=== PATIENT | female | born 1985 | race Caucasian/White ===

== ENCOUNTER 2018-05-07 04:25 | Emergency (ER) | payer BC ==
[2018-05-07] MEDS: Sodium Chloride 0.9% 1,000 ML IV ONE (04:57)
[2018-05-07] MEDS: Ondansetron 4 MG/2 ML SDV IVPUSH PRN (05:00)
[2018-05-07 05:06] LABS: CHLORIDE,CL 105 mEq/L (98-106); SODIUM,NA 142 mEq/L (136-145)
--- NOTE | 2018-05-07 05:27 | EDM.PDOC ---
ED HPI GENERAL MEDICAL PROBLEM - General Chief Complaint: General Stated Complaint: "I've been vomitting" Time Seen by Provider: 05/07/18 05:10 Source of Information: Reports: Patient History Limitations: Reports: No Limitations - History of Present Illness INITIAL COMMENTS - FREE TEXT/NARRATIVE: Developed abdominal pain about 11 pm last night that progressively became worse. Pain is mainly in the right upper quadrant. Started vomiting at 0200. and is now dry heaving with thick white phlegm and bile material. Last normal period was 2 weeks ago. No vaginal discharge or frequency of urination noted. has never had any abdominal surgery in the past. No pain in this area in the past. Ate [employer] sandwich last evening. Onset: Today Location: Reports: Abdomen Severity: Moderate Associated Symptoms: Reports: Nausea/Vomiting Right Upper Abdomen Pain Score (Numeric/FACES): 9 - Related Data Allergies Allergy/AdvReac Type Severity Reaction Status Date / Time ciprofloxacin [From Cipro] Allergy Blisters Verified 05/07/18 05:04 Home Meds: Home Meds Escitalopram Oxalate 10 mg PO DAILY 05/07/18 [History] hydrOXYzine HCl [hydrOXYzine] 25 mg PO DAILY 05/07/18 [History] traZODone HCl [Trazodone HCl] 50 mg PO DAILY 05/07/18 [History] Past Medical History - Past Surgical History Musculoskeletal Surgical History: Reports: Arthroscopic Knee (left), Other (See Below) (right foot) Social & Family History - Tobacco Use Smoking Status *Q: Current Every Day Smoker ED ROS GENERAL - Review of Systems Review Of Systems: See Below Constitutional: Denies: Fever, Chills HEENT: Reports: No Symptoms Respiratory: Reports: No Symptoms Cardiovascular: Reports: No Symptoms GI/Abdominal: Reports: Abdominal Pain, Nausea, Vomiting. Denies: Constipation, Diarrhea Musculoskeletal: Reports: No Symptoms Skin: Reports: No Symptoms Neurological: Reports: No Symptoms ED EXAM, GENERAL - Physical Exam Exam: See Below Exam Limited By: No Limitations General Appearance: Alert, WD/WN, Moderate Distress Ears: Normal External Exam, Normal Canal, Normal TMs Throat/Mouth: Normal Inspection, Normal Voice Head: Atraumatic, Normocephalic Neck: Normal Inspection, Supple, Non-Tender, Full Range of Motion Respiratory/Chest: No Respiratory Distress, Lungs Clear, Normal Breath Sounds Cardiovascular: Regular Rate, Rhythm, No Murmur GI/Abdominal: Normal Bowel Sounds, Soft, Non-Tender, No Organomegaly Extremities: Normal Inspection, Normal Range of Motion, Non-Tender, No Pedal Edema, Normal Capillary Refill Neurological: Alert, Oriented Skin Exam: Warm, Dry, Intact Course - Vital Signs Last Recorded V/S: Last Vital Signs Temp 96.9 F 05/07/18 08:51 Pulse 65 05/07/18 08:51 Resp 16 05/07/18 08:51 BP 110/46 L 05/07/18 08:51 Pulse Ox 99 05/07/18 08:51 - Orders/Labs/Meds Orders: Active Orders 24 hr Category Date Time Status Abdomen Ltd [US] Stat Exams 05/07/18 05:44 Taken Ondansetron [Zofran] Med 05/07/18 04:46 Active 4 mg IVPUSH Q6H PRN Sodium Chloride 0.9% [Normal Saline] 1,000 ml Med 05/07/18 04:45 Active IV .BOLUS Sodium Chloride 0.9% [Normal Saline] 1,000 ml Med 05/07/18 06:00 Active IV ASDIRECTED Medication Orders Sodium Chloride (Normal Saline) 1,000 mls @ 999 drops/hr IV .BOLUS ONE Stop: 05/07/18 19:45 Last Admin: 05/07/18 04:57 Dose: 999 drops/hr Sodium Chloride (Normal Saline) 1,000 mls @ 250 mls/hr IV ASDIRECTED LEIGH Last Admin: 05/07/18 06:03 Dose: 250 mls/hr Ondansetron HCl (Zofran) 4 mg IVPUSH Q6H PRN PRN Reason: Vomiting Last Admin: 05/07/18 05:00 Dose: 4 mg Labs: Laboratory Tests 05/07/18 05/07/18 05/07/18 Range/Units 04:55 04:55 04:55 WBC 13.2 H (5.0-10.0) 10^3/uL RBC 4.98 (4.00-5.50) 10^6/uL Hgb 14.1 (12.0-16.0) g/dL Hct 43.6 (37.0-47.0) % MCV 87.6 (82.0-94.0) fL MCH 28.3 (27.0-32.0) pg MCHC 32.3 L (33.0-38.0) g/dL RDW Coeff of [place] 13.8 (11.0-15.0) % Plt Count 299 (150-400) 10^3/uL Neut % (Auto) 79.7 (35-85) % Lymph % (Auto) 10.7 (10-55) % [place] % (Auto) 7.2 (0-16) % Eos % (Auto) 2.2 (0-5) % Baso % (Auto) 0.2 (0-3) % Neut # (Auto) 10.52 H (1.80-7.00) 10^3/uL Lymph # (Auto) 1.41 (1.00-4.80) 10^3/uL [place] # (Auto) 0.95 H (0.00-0.80) 10^3/uL Eos # (Auto) 0.29 (0.00-0.45) 10^3/uL Baso # (Auto) 0.02 10^3/uL Sodium 142 (136-145) mEq/L Potassium 3.6 (3.5-5.0) mEq/L Chloride 105 (98-106) mEq/L Carbon Dioxide 27 (21-32) mmol/L BUN 11 D (7-18) mg/dL Creatinine 0.9 (0.6-1.0) mg/dL Est Cr Clr Drug Dosing TNP Estimated GFR (MDRD) > 60 (>=60) mL/min Glucose 114 H (75-99) mg/dL Calcium 8.7 (8.4-10.1) mg/dL Total Bilirubin (0.0-1.0) mg/dL AST (15-37) U/L ALT (12-78) U/L Alkaline Phosphatase (46-116) U/L C-Reactive Protein 4.1 H (0.2-0.8) mg/dL Total Protein (6.4-8.2) g/dL Albumin (3.4-5.0) g/dL Amylase (25-115) U/L Urine Color Yellow (YELLOW) Urine Appearance Clear (CLEAR) Urine pH 6.0 (4.5-8.0) Ur Specific [place] >= 1.030 H (1.003-1.020) Urine Protein Trace H (NEGATIVE) mg/dL Urine Glucose (UA) Negative (NEGATIVE) mg/dL Urine Ketones Negative (NEGATIVE) mg/dL Urine Occult Blood Trace-lysed H (NEGATIVE) Urine Nitrite Negative (NEGATIVE) Urine Bilirubin Negative (NEGATIVE) Urine Urobilinogen 0.2 (0.2-1.0) EU/dL Ur Leukocyte Esterase Negative (NEGATIVE) Urine RBC Not seen (0-5) /HPF Urine WBC Not seen (0-5) /HPF Ur Squamous Epith Cells Few H (NOT SEEN) /HPF Urine Bacteria Few H (NOT SEEN) /HPF Urine Mucus Few H (NOT SEEN) /HPF 05/07/18 Range/Units 04:55 WBC (5.0-10.0) 10^3/uL RBC (4.00-5.50) 10^6/uL Hgb (12.0-16.0) g/dL Hct (37.0-47.0) % MCV (82.0-94.0) fL MCH (27.0-32.0) pg MCHC (33.0-38.0) g/dL RDW Coeff of [place] (11.0-15.0) % Plt Count (150-400) 10^3/uL Neut % (Auto) (35-85) % Lymph % (Auto) (10-55) % [place] % (Auto) (0-16) % Eos % (Auto) (0-5) % Baso % (Auto) (0-3) % Neut # (Auto) (1.80-7.00) 10^3/uL Lymph # (Auto) (1.00-4.80) 10^3/uL [place] # (Auto) (0.00-0.80) 10^3/uL Eos # (Auto) (0.00-0.45) 10^3/uL Baso # (Auto) 10^3/uL Sodium 141 (136-145) mEq/L Potassium 3.6 (3.5-5.0) mEq/L Chloride 105 (98-106) mEq/L Carbon Dioxide 24 (21-32) mmol/L BUN 11 (7-18) mg/dL Creatinine 0.9 (0.6-1.0) mg/dL Est Cr Clr Drug Dosing TNP Estimated GFR (MDRD) > 60 (>=60) mL/min Glucose 113 H (75-99) mg/dL Calcium 8.6 (8.4-10.1) mg/dL Total Bilirubin 0.2 (0.0-1.0) mg/dL AST 16 (15-37) U/L ALT 21 (12-78) U/L Alkaline Phosphatase 61 (46-116) U/L C-Reactive Protein (0.2-0.8) mg/dL Total Protein 7.4 (6.4-8.2) g/dL Albumin 3.1 L (3.4-5.0) g/dL Amylase 63 (25-115) U/L Urine Color (YELLOW) Urine Appearance (CLEAR) Urine pH (4.5-8.0) Ur Specific [place] (1.003-1.020) Urine Protein (NEGATIVE) mg/dL Urine Glucose (UA) (NEGATIVE) mg/dL Urine Ketones (NEGATIVE) mg/dL Urine Occult Blood (NEGATIVE) Urine Nitrite (NEGATIVE) Urine Bilirubin (NEGATIVE) Urine Urobilinogen (0.2-1.0) EU/dL Ur Leukocyte Esterase (NEGATIVE) Urine RBC (0-5) /HPF Urine WBC (0-5) /HPF Ur Squamous Epith Cells (NOT SEEN) /HPF Urine Bacteria (NOT SEEN) /HPF Urine Mucus (NOT SEEN) /HPF Meds: Medications Generic Name Dose Route Start Last Admin Trade Name Freq PRN Reason Stop Dose Admin Sodium Chloride 1,000 mls @ 999 drops/hr 05/07/18 04:45 05/07/18 04:57 Normal Saline IV 05/07/18 19:45 999 drops/hr .BOLUS ONE Administration Sodium Chloride 1,000 mls @ 250 mls/hr 05/07/18 06:00 05/07/18 06:03 Normal Saline IV 250 mls/hr ASDIRECTED LEIGH Administration Ondansetron HCl 4 mg 05/07/18 04:46 05/07/18 05:00 Zofran IVPUSH 4 mg Q6H PRN Administration Vomiting Discontinued Medications Generic Name Dose Route Start Last Admin Trade Name Freq PRN Reason Stop Dose Admin Fentanyl 50 mcg 05/07/18 05:46 05/07/18 06:00 Sublimaze IVPUSH 05/07/18 05:47 50 mcg ONETIME ONE Administration Promethazine HCl 25 mg/ Sodium 51 mls @ 100 mls/hr 05/07/18 05:49 07/13/18 06 :04 Chloride IV 05/07/18 06:19 100 mls/hr NOW STA Administration - Re-Assessments/Exams Free Text/Narrative Re-Assessment/Exam: 05/07/18 05:45 Will continue IV fluids and keep obs for the next 1-2 hours to rehydrate. 05/07/18 09:26 Discussed that she has gallstones. Will set up appt with Dr. Bonilla for Gall bladder consult Departure - Departure Time of Disposition: 09:28 Disposition: Home, Self-Care 01 Condition: Good Clinical Impression: Cholecystitis with cholelithiasis Qualifiers: Cholelithiasis location: gallbladder Cholecystitis acuity: acute Biliary obstruction: without biliary obstruction Qualified Code(s): K80.00 - Calculus of gallbladder with acute cholecystitis without obstruction - Discharge Information Instructions: Cholelithiasis Forms: ED Department Discharge Additional Instructions: Appt with Dr. Bonilla May 11 at 2:45 for consult for gallbladder. Avoid fatty foods as much as possible push fluids as much as possible Phenergan 25 mg every 8 hours as needed for nausea Tramadol 50 mg every 8 hours as needed for pain - Problem List & Annotations (1) Cholecystitis with cholelithiasis SNOMED Code(s): 917191386, 547963959 Code(s): K80.10 - CALCULUS OF GALLBLADDER W CHRONIC CHOLECYST W/O OBSTRUCTION Status: Acute Priority: High Current Visit: Yes Qualifiers: Cholelithiasis location: gallbladder Cholecystitis acuity: acute Biliary obstruction: without biliary obstruction Qualified Code(s): K80.00 - Calculus of gallbladder with acute cholecystitis without obstruction - Problem List Review Problem List Initiated/Reviewed/Updated: Yes - My Orders Last 24 Hours: My Active Orders 05/07/18 04:45 Sodium Chloride 0.9% [Normal Saline] 1,000 ml IV .BOLUS 05/07/18 04:46 Ondansetron [Zofran] 4 mg IVPUSH Q6H PRN 05/07/18 05:44 Abdomen Ltd [US] Stat 05/07/18 06:00 Sodium Chloride 0.9% [Normal Saline] 1,000 ml IV ASDIRECTED - Assessment/Plan Last 24 Hours: My Active Orders 05/07/18 04:45 Sodium Chloride 0.9% [Normal Saline] 1,000 ml IV .BOLUS 05/07/18 04:46 Ondansetron [Zofran] 4 mg IVPUSH Q6H PRN 05/07/18 05:44 Abdomen Ltd [US] Stat 05/07/18 06:00 Sodium Chloride 0.9% [Normal Saline] 1,000 ml IV ASDIRECTED
[2018-05-07 05:43] LABS: CHLORIDE,CL 105 mEq/L (98-106); SODIUM,NA 141 mEq/L (136-145)
[2018-05-07] MEDS: fentaNYL 100 MCG/2 ML SDV IVPUSH ONE (06:00)
[2018-05-07] MEDS: Sodium Chloride 0.9% 1,000 ML IV SCH (06:03)
[2018-05-07] MEDS: Promethazine 25 MG in Sodium Chloride 0.9% 50 ML IV STA (06:04)
== END 2018-05-07 09:51 | disposition home or self-care (01) ==
LOC: CC.ED 04:25
DX: K80.00 Calculus of gallbladder with acute cholecystitis without obstruction (principal); F17.210 Nicotine dependence, cigarettes, uncomplicated; Z88.1 Allergy status to other antibiotic agents
CPT/HCPCS: 36415; 76705; 80048; 80053; 81001; 82150; 85025; 86140; 96361; 96365; 96375; 99284; J2405; J2550; J3010; J7030; J7050

== ENCOUNTER 2020-02-22 14:40 | Emergency (ER) | payer BC ==
[2020-02-22] MEDS ORDERED: Pantoprazole 40 MG Tab.CR PO ONE (14:41)
[2020-02-22] MEDS ORDERED: Ondansetron 4 MG Tab.DIS PO ONE (14:51)
[2020-02-22] MEDS ORDERED: Alum Hydrox/Mag Hydrox/Simeth 30 ML, Lidocaine 2% 15 ML PO ONE ×2 (14:51)
[2020-02-22 15:15] LABS: CHLORIDE,CL 104 mEq/L (98-106); SODIUM,NA 139 mEq/L (136-145)
[2020-02-22] MEDS ORDERED: Acetaminophen 325 MG Tab PO ONE (15:23)
[2020-02-22] MEDS ORDERED: Sucralfate 1 GM Tab PO ONE (15:24)
[2020-02-22] MEDS ORDERED: Take Home: Pantoprazole 40 MG Tab.CR, 1 Tab Pack PO ONE (15:24)
--- NOTE | 2020-02-22 15:25 | EDM.PDOC ---
ED HPI GENERAL MEDICAL PROBLEM - General Chief Complaint: Abdominal Pain Stated Complaint: SEVERE ABD PAIN/NAUSEA Time Seen by Provider: 02/22/20 15:00 Source of Information: Reports: Patient History Limitations: Reports: No Limitations - History of Present Illness INITIAL COMMENTS - FREE TEXT/NARRATIVE: Devika is a 34 yo female who presents to the ED with complaints of abdominal pain. Pain started around 9:30 this morning and has progressively worsened thru out the day. She states she hasn't ate anything today and has only drank tea today. Admits to normal bowel movements. States she has had two today. Denies any bloody stools. States the pain has made her nauseated and vomited a few times today. States the pain reminds her of when she had gallstones and ended up getting her gallbladder out. Denies any symptoms since. Does have history of GERD and has been taking omeprazole for the last few months. Denies any alcohol use. States she does smoke about 1 ppd. No hematemesis. Denies any chance of . Middle Epigastric Pain Score (Numeric/FACES): 6 - Related Data Allergies Allergy/AdvReac Type Severity Reaction Status Date / Time ciprofloxacin [From Cipro] Allergy Blisters Verified 02/22/20 14:44 Home Meds: Home Meds . [No Known Home Meds] 02/22/20 [History] Past Medical History Psychiatric History: Reports: Depression, Panic Attack - Past Surgical History GI Surgical History: Reports: Cholecystectomy Musculoskeletal Surgical History: Reports: Arthroscopic Knee, Other (See Below) Social & Family History - Tobacco Use Smoking Status *Q: Current Every Day Smoker Years of Tobacco use: 15 Packs/Tins Daily: 1 ED ROS GENERAL - Review of Systems Review Of Systems: See Below Constitutional: Reports: Fatigue, Decreased Appetite. Denies: Fever, Chills HEENT: Reports: No Symptoms Respiratory: Reports: No Symptoms Cardiovascular: Reports: No Symptoms GI/Abdominal: Reports: Abdominal Pain, Decreased Appetite, Nausea, Vomiting. Denies: Bloody Stool, Constipation, Diarrhea, Distension, Hematemesis, Hematochezia : Reports: No Symptoms Musculoskeletal: Reports: No Symptoms. Denies: Back Pain Skin: Reports: No Symptoms Neurological: Reports: No Symptoms ED EXAM, GI/ABD - Physical Exam Exam: See Below Exam Limited By: No Limitations General Appearance: Alert, Mild Distress Ears: Normal External Exam, Normal Canal, Hearing Grossly Normal, Normal TMs Nose: Normal Inspection, Normal Mucosa, No Blood Throat/Mouth: Normal Inspection, Normal Lips, Normal Teeth, Normal Gums, Normal Oropharynx, Normal Voice, No Airway Compromise Head: Atraumatic, Normocephalic Neck: Normal Inspection, Supple, Non-Tender, Full Range of Motion Respiratory/Chest: No Respiratory Distress, Lungs Clear, Normal Breath Sounds, No Accessory Muscle Use, Chest Non-Tender Cardiovascular: Regular Rate, Rhythm, No Edema, No Murmur GI/Abdominal Exam: Normal Bowel Sounds, Soft, No Organomegaly, No Distention, No Mass, Tender (epigastrc and left/mid upper quadrant) Back Exam: Normal Inspection. No: CVA Tenderness (L), CVA Tenderness (R) Extremities: Normal Inspection, No Pedal Edema Neurological: Alert, Oriented, Normal Cognition Psychiatric: Normal Affect, Normal Mood Skin Exam: Warm, Dry, Intact, Normal Color, No Rash Course - Vital Signs Last Recorded V/S: Last Vital Signs Temp 97.2 F 02/22/20 14:50 Pulse 82 02/22/20 14:50 Resp 18 02/22/20 14:50 BP 122/82 02/22/20 14:50 Pulse Ox - Orders/Labs/Meds Orders: Active Orders 24 hr Category Date Time Status HCG QUALITATIVE,SERUM [CHEM] Stat Lab 02/22/20 15:00 Received UA RFX DORA AND CULT IF INDIC [URIN] Stat Lab 02/22/20 14:50 Ordered Labs: Laboratory Tests 02/22/20 02/22/20 Range/Units 15:00 15:00 WBC 12.2 H (5.0-10.0) 10^3/uL RBC 5.02 (4.00-5.50) 10^6/uL Hgb 14.6 (12.0-16.0) g/dL Hct 44.4 (37.0-47.0) % MCV 88.4 (82.0-94.0) fL MCH 29.1 (27.0-32.0) pg MCHC 32.9 L (33.0-38.0) g/dL RDW Coeff of [place] 13.9 (11.0-15.0) % Plt Count 274 (150-400) 10^3/uL Neut % (Auto) 77.4 (35-85) % Lymph % (Auto) 14.0 (10-55) % [place] % (Auto) 4.9 (0-16) % Eos % (Auto) 3.4 (0-5) % Baso % (Auto) 0.3 (0-3) % Neut # (Auto) 9.44 H (1.80-7.00) 10^3/uL Lymph # (Auto) 1.71 (1.00-4.80) 10^3/uL [place] # (Auto) 0.60 (0.00-0.80) 10^3/uL Eos # (Auto) 0.41 (0.00-0.45) 10^3/uL Baso # (Auto) 0.04 10^3/uL Sodium 139 (136-145) mEq/L Potassium 3.8 (3.5-5.0) mEq/L Chloride 104 (98-106) mEq/L Carbon Dioxide 26 (21-32) mmol/L BUN 11 D (7-18) mg/dL Creatinine 0.9 (0.6-1.0) mg/dL Est Cr Clr Drug Dosing TNP Estimated GFR (MDRD) > 60 (>=60) mL/min Glucose 92 (75-99) mg/dL Calcium 9.0 (8.4-10.1) mg/dL Total Bilirubin 0.3 (0.0-1.0) mg/dL AST 15 (15-37) U/L ALT 20 (12-78) U/L Alkaline Phosphatase 62 (46-116) U/L C-Reactive Protein 1.0 H (0.2-0.8) mg/dL Total Protein 7.8 (6.4-8.2) g/dL Albumin 3.7 (3.4-5.0) g/dL Amylase 48 (25-115) U/L Lipase 127 (73-393) U/L Meds: Medications Discontinued Medications Generic Name Dose Route Start Last Admin Trade Name Freq PRN Reason Stop Dose Admin Al Hydroxide/Mg Hydroxide 30 0 ml 02/22/20 14:51 02/22/20 14:59 ml/ Lidocaine HCl 15 ml PO 02/22/20 14:52 30 ml ONETIME ONE Administration Ondansetron HCl 4 mg 02/22/20 14:51 Zofran Odt PO 02/22/20 14:52 ONETIME ONE Departure - Departure Time of Disposition: 15:29 Disposition: Home, Self-Care 01 Clinical Impression: Peptic ulcer - Discharge Information Instructions: Peptic Ulcer, [id number], Nausea and Vomiting, Adult, Easy-to- Read Referrals: Inna Guallpa PA-C [Primary Care Provider] - Additional Instructions: 1) Zofran 4mg ODT - 1 tablet every 4 hours as needed for nausea 2) Carafate 1gm - 1 tablet 4 times a day 3) Continue with omeprazole twice a day for 2 weeks 4) May take Tylenol for discomfort, refrain from any NSAIDs (ibuprofen, aleve, motrin, naproxen, aspirin, etc... ). 5) spicy foods, chocolate, caffeine, stress, smoking will irritate ulcer 6) Follow up in clinic on Thursday for recheck, advise returning sooner if symptoms worsen. Sepsis Event Note - Evaluation Sepsis Screening Result: No Definite Risk - Focused Exam Vital Signs: Vital Signs Temp Pulse Resp BP 02/22/20 14:50 97.2 F 82 18 122/82 Date Exam was Performed: 02/22/20 Time Exam was Performed: 15:19 - Problem List & Annotations (1) Peptic ulcer SNOMED Code(s): 50448363 Code(s): K27.9 - PEPTIC ULC, SITE UNSP, UNSP AC OR CHR, W/O HEMOR OR PERF Status: Acute Current Visit: Yes - My Orders Last 24 Hours: My Active Orders 02/22/20 14:50 UA RFX DORA AND CULT IF INDIC [URIN] Stat 02/22/20 15:00 HCG QUALITATIVE,SERUM [CHEM] Stat - Assessment/Plan Last 24 Hours: My Active Orders 02/22/20 14:50 UA RFX DORA AND CULT IF INDIC [URIN] Stat 02/22/20 15:00 HCG QUALITATIVE,SERUM [CHEM] Stat Plan: Patient initially given GI cocktail upon my arrival to ED. Pain initially was 7 out of 10 and after consuming the GI cocktail pain did subside to 1 out of 10. We will discharge at this time. Long discussion of peptic ulcer disease and treatment approach. Advise recheck in clinic on Thursday. May return to ED if symptoms worsen. Labs overall are stable. LFT's and pancreas labs unremarkable.
== END 2020-02-22 15:43 | disposition home or self-care (01) ==
LOC: CC.ED 14:40
DX: K27.9 Peptic ulcer, site unspecified, unspecified as acute or chronic, without hemorrhage or perforation (principal); Z88.1 Allergy status to other antibiotic agents; F17.210 Nicotine dependence, cigarettes, uncomplicated
CPT/HCPCS: 36415; 80053; 82150; 83690; 84703; 85025; 86140; 99284; A9270-GY

== ENCOUNTER 2020-12-15 08:35 | Emergency (ER) | payer BC ==
--- NOTE | 2020-12-15 09:27 | EDM.PDOC ---
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 She is approximately 8 1/2 weeks , was confirmed by ultrasound on November 26 as she was unsure of dates. Today, went to work and with voiding, noted a fair amount of blood on the tissue. Did not have any cramping so continued to work. Approximately 30 minutes later, did start cramping and passed more blood. Does still have mild cramping. Is a 1. Has been seeing Dr. Bridges in [place] for her OB visits. 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 Psychiatric History: Reports: Depression, Panic Attack - Past Surgical History GI Surgical History: Reports: Cholecystectomy Musculoskeletal Surgical History: Reports: Arthroscopic Knee, Other (See Below) Other Musculoskeletal Surgeries/Procedures:: Right foot surgery. L knee lateral release and tibial tubercle transfer Social & Family History - Family History Family Medical History: No Pertinent Family History - Tobacco Use Tobacco Use Status *Q: Current Every Day Tobacco User Years of Tobacco use: 10 Packs/Tins Daily: 1 - Caffeine Use Caffeine Use: Reports: None - Recreational Drug Use Recreational Drug Use: No ED ROS GENERAL - Review of Systems Review Of Systems: See Below Constitutional: Denies: Fever, Chills, Malaise, Weakness, Fatigue, Decreased Appetite HEENT: Reports: No Symptoms Respiratory: Denies: Shortness of Breath, Cough Cardiovascular: Denies: Chest Pain, Edema, Lightheadedness Endocrine: Denies: Fatigue GI/Abdominal: Denies: Abdominal Pain, Nausea, Vomiting : Reports: Other (bleeding in first trimester) Musculoskeletal: Reports: No Symptoms Skin: Reports: No Symptoms Neurological: Reports: No Symptoms ED EXAM - Physical Exam Exam: See Below Exam Limited By: No Limitations General Appearance: Alert, WD/WN, No Apparent Distress Ears: Normal External Exam, Normal TMs Nose: Normal Inspection, Normal Mucosa, No Blood Throat/Mouth: Normal Inspection, Normal Oropharynx Head: Normocephalic Neck: Normal Inspection, Supple, Non-Tender Respiratory/Chest: No Respiratory Distress, Lungs Clear, Normal Breath Sounds Cardiovascular: Regular Rate, Rhythm GI/Abdominal Exam: Normal Bowel Sounds, Soft, Non-Tender (Female) Exam: Other (unable to obtain FHTs, early in ). No: Vaginal Bleeding (no active bleeding at present) Extremities: Normal Inspection, No Pedal Edema Neurological: Alert, Oriented Skin Exam: Warm, Dry Course - Vital Signs Last Recorded V/S: Last Vital Signs Temp 96.8 F L 12/15/20 08:44 Pulse 91 12/15/20 08:44 Resp 18 12/15/20 08:44 BP 137/81 12/15/20 08:44 Pulse Ox 99 12/15/20 08:44 - Orders/Labs/Meds Orders: Active Orders 24 hr Category Date Time Status Serum Beta-HCG [BHCG QUANTITATIVE] [REF] Stat Lab 12/15/20 09:41 Received - Re-Assessments/Exams Free Text/Narrative Re-Assessment/Exam: 12/15/20 quantitative HCG drawn, will await results. Will likely need to repeat these labs next week. Discussed pelvic ultrasound. We do not have audiometric technician available today. Patient very apprehensive and does not want to wait until Thursday to have evaluated. Is aware that could not change the course of a spontaneous at this point. Contacted [facility], no tech available. contacted [facility]. Able to do ultrasound today. Will have patient go per private vehicle for testing. Will notify her once a full report is received. Advised pelvic rest/no intercourse. Rest. Push fluids. Departure - Departure Time of Disposition: 09:25 Disposition: Home, Self-Care 01 Condition: Fair Clinical Impression: Threatened - Discharge Information *PRESCRIPTION DRUG MONITORING PROGRAM REVIEWED*: No *COPY OF PRESCRIPTION DRUG MONITORING REPORT IN PATIENT MICHELE: No Instructions: Threatened Miscarriage Referrals: Patricia Pitts PA [Primary Care Provider] - Forms: ED Department Discharge Additional Instructions: 1. Rest 2. Push fluids 3. No intercourse 4. Report to [facility] for ultrasound this am 5. We will call you once a report is received from that ultrasound and further plan Sepsis Event Note (ED) - Evaluation Sepsis Screening Result: No Definite Risk - Focused Exam Vital Signs: Vital Signs Temp Pulse Resp BP Pulse Ox 12/15/20 08:44 96.8 F L 91 18 137/81 99 - My Orders Last 24 Hours: My Active Orders 12/15/20 09:41 Serum Beta-HCG [BHCG QUANTITATIVE] [REF] Stat - Assessment/Plan Last 24 Hours: My Active Orders 12/15/20 09:41 Serum Beta-HCG [BHCG QUANTITATIVE] [REF] Stat
== END 2020-12-15 09:28 | disposition home or self-care (01) ==
LOC: CC.ED 08:35
DX: O20.0 Threatened abortion (principal); Z88.1 Allergy status to other antibiotic agents; Z72.0 Tobacco use; Z3A.08 8 weeks gestation of pregnancy
CPT/HCPCS: 36415; 84702; 99284

== ENCOUNTER 2021-10-28 10:10 | Emergency (ER) | payer SELFPAY ==
[2021-10-28] MEDS ORDERED: Ketorolac 60 MG/2 ML SDV IM ONE (10:29)
[2021-10-28] MEDS ORDERED: Iopamidol 755 Mg/ML 100 ML Bottle IVPUSH ONE (11:35)
--- NOTE | 2021-10-28 13:07 | EDM.PDOC ---
ED HPI GENERAL MEDICAL PROBLEM - General Chief Complaint: General Stated Complaint: LT SIDED JIMENEZ Time Seen by Provider: 10/28/21 10:30 Source of Information: Reports: Patient History Limitations: Reports: No Limitations - History of Present Illness INITIAL COMMENTS - FREE TEXT/NARRATIVE: Pleasant 36 year old female presents with severe left sided eye pain and headache. She has her eyes covered as she is so sensitive to light and has extreme pain with any ocular movements and will barely even open her eyes. She states she had a sinus infection two weeks ago; was never on any antibiotics. No history of migraines. No fever, chills or other symptoms. No nasal discharge or ear pain. She states it came on suddenly this am. She did not try anything to help alleviate pain prior to arrival at ER. Onset: Sudden Onset Date: 10/28/21 Duration: Hour(s): (patient states started this am; did not try any home remedies prior to arrival.) Location: Reports: Face Quality: Reports: Pressure, Stabbing, Throbbing Severity: Severe Improves with: Reports: None Worsens with: Reports: Movement Associated Symptoms: Reports: No Other Symptoms Treatments ACADEMIC COORDINATOR: Reports: Other (see below) (no treatments prior to arrival) Headache Pain Score (Numeric/FACES): 7 - Related Data Allergies Allergy/AdvReac Type Severity Reaction Status Date / Time ciprofloxacin [From Cipro] Allergy Blisters Verified 10/28/21 10:46 Home Meds: Home Meds Amoxicillin/Potassium Clav [Augmentin 875-125 Tablet] 1 each PO BID 10 Days #20 tab 10/28/21 [Rx] Diclofenac Sodium 75 mg PO BID PRN 10 Days #20 tablet. 10/28/21 [Rx] Omeprazole 20 mg PO DAILY 10/28/21 [History] Past Medical History Gastrointestinal History: Reports: None, GERD COMMISSION [employer]ER History: Reports: Other (See Below) Other COMMISSION BR[employer]ER History: 8.5 weeks with vaginal bleeding. Psychiatric History: Reports: Depression, Panic Attack - Past Surgical History GI Surgical History: Reports: Cholecystectomy Musculoskeletal Surgical History: Reports: Arthroscopic Knee, Other (See Below) Other Musculoskeletal Surgeries/Procedures:: Right foot surgery. L knee lateral release and tibial tubercle transfer Social & Family History - Family History Family Medical History: No Pertinent Family History - Tobacco Use Tobacco Use Status *Q: Current Every Day Tobacco User Years of Tobacco use: 10 Packs/Tins Daily: 0.5 - Caffeine Use Caffeine Use: Reports: Coffee, Energy Drinks, Soda - Alcohol Use Days Per Week of Alcohol Use: 3 Number of Drinks Per Day: 5 Total Drinks Per Week: 15 - Recreational Drug Use Recreational Drug Use: No ED ROS GENERAL - Review of Systems Review Of Systems: See Below Constitutional: Reports: No Symptoms HEENT: Reports: Eye Discharge, Eye Pain Respiratory: Reports: No Symptoms Cardiovascular: Reports: No Symptoms Endocrine: Reports: No Symptoms GI/Abdominal: Reports: No Symptoms : Reports: No Symptoms Musculoskeletal: Reports: No Symptoms Skin: Reports: No Symptoms Neurological: Reports: Paresthesia Psychiatric: Reports: No Symptoms Hematologic/Lymphatic: Reports: No Symptoms Immunologic: Reports: No Symptoms ED EXAM, GENERAL - Physical Exam Exam: See Below Exam Limited By: No Limitations General Appearance: Alert, WD/WN, Severe Distress Eye Exam: Left Eye: Abnormal EOM (severe pain with eye movement), Conjunctival Injection, Periorbital Changes, Other (difficult to do full exam due to patient extreme pain) Ears: Normal External Exam Nose: Normal Inspection Throat/Mouth: Normal Inspection Head: Atraumatic, Normocephalic Neck: Normal Inspection Respiratory/Chest: No Respiratory Distress Cardiovascular: Normal Peripheral Pulses, Regular Rate, Rhythm Neurological: Alert, Oriented, CN II-XII Intact, Normal Cognition Psychiatric: Normal Affect, Normal Mood Skin Exam: Warm, Dry, Intact Lymphatic: No Adenopathy Course - Vital Signs Last Recorded V/S: Last Vital Signs Temp 36.4 C 10/28/21 10:31 Pulse 72 10/28/21 10:31 Resp 20 10/28/21 10:31 BP 141/94 H 10/28/21 10:31 Pulse Ox 99 10/28/21 10:31 - Orders/Labs/Meds Orders: Active Orders 24 hr Category Date Time Status Max Facial Sinus w Cont [CT] Stat Exams 10/28/21 10:53 Taken Labs: Laboratory Tests 10/28/21 10/28/21 Range/Units 11:02 11:02 WBC 7.7 (4.0-11.0) 10^3/uL RBC 4.89 (4.00-5.50) x10^6/uL Hgb 14.1 (12.0-16.0) g/dL Hct 43.0 (37.0-47.0) % MCV 87.9 (83.0-97.0) fL MCH 28.8 (27.0-32.0) pg MCHC 32.8 (32.0-36.0) g/dL RDW Coeff of Edmond 14.0 (11.0-15.0) % Plt Count 236 (150-400) 10^3/uL Immature Gran % (Auto) 0.1 (0.0-4.9) % Neut % (Auto) 72.9 H (41-71) % Lymph % (Auto) 15.5 L (24-44) % Tift % (Auto) 7.7 (0-10) % Eos % (Auto) 3.4 (0-6) % Baso % (Auto) 0.4 (0-1) % Neut # (Auto) 5.60 (1.80-8.00) x10^3/uL Lymph # (Auto) 1.19 (0.60-5.00) 10^3/uL Tift # (Auto) 0.59 (0.00-1.50) 10^3/uL Eos # (Auto) 0.26 (0.00-1.50) 10^3/uL Baso # (Auto) 0.03 (0.00-0.50) 10^3/uL Immature Gran # (Auto) 0.01 (0.00-0.49) 10^3/uL Sodium 141 (136-145) mEq/L Potassium 3.9 (3.5-5.0) mEq/L Chloride 104 (98-106) mEq/L Carbon Dioxide 26 (21-32) mmol/L BUN 7 (7-18) mg/dL Creatinine 1.1 H (0.6-1.0) mg/dL Est Cr Clr Drug Dosing 79.78 mL/min Estimated GFR (MDRD) 57 L (>=60) mL/min Glucose 99 (75-99) mg/dL Calcium 8.6 (8.4-10.1) mg/dL Total Bilirubin 0.2 (0.0-1.0) mg/dL AST 11 L (15-37) U/L ALT 47 (12-78) U/L Alkaline Phosphatase 52 (46-116) U/L C-Reactive Protein 1.1 H (0.2-0.8) mg/dL Total Protein 6.7 (6.4-8.2) g/dL Albumin 3.0 L (3.4-5.0) g/dL Meds: Medications Discontinued Medications Generic Name Dose Route Start Last Admin Trade Name Freq PRN Reason Stop Dose Admin Iopamidol 100 ml 10/28/21 11:35 10/28/21 11:37 Iopamidol 755 Mg/Ml 100 Ml Bottle IVPUSH 10/28/21 11:36 100 ml ONETIME ONE Administration Ketorolac Tromethamine 60 mg 10/28/21 10:29 10/28/21 10:37 Ketorolac 60 Mg/2 Ml Sdv IM 10/28/21 10:30 60 mg ONETIME ONE Administration - Re-Assessments/Exams Free Text/Narrative Re-Assessment/Exam: 10/28/21 11:08 Patient give 60 mg IM Tordol - helped with pain Sent for labs including cbc, cmp, crp and head CT w contrast to evaluate for orbital cellulitis based on patient presentation. Departure - Departure Time of Disposition: 13:09 Disposition: Home, Self-Care 01 Condition: Fair Clinical Impression: Sinusitis, Ocular migraine - Discharge Information *PRESCRIPTION DRUG MONITORING PROGRAM REVIEWED*: Not Applicable *COPY OF PRESCRIPTION DRUG MONITORING REPORT IN PATIENT MICHELE: Not Applicable Prescriptions: Amoxicillin/Potassium Clav [Augmentin 875-125 Tablet] 1 each PO BID 10 Days #20 tab Diclofenac Sodium 75 mg PO BID PRN 10 Days #20 tablet.dr ALBERT Reason: Headache Instructions: Sinusitis, Adult Referrals: PCP,None [Primary Care Provider] - Additional Instructions: Follow with primary care as needed and return if worsen. Take all antibiotics as directed with food. Sepsis Event Note (ED) - Evaluation Sepsis Screening Result: No Definite Risk - Focused Exam Vital Signs: Vital Signs Temp Pulse Resp BP Pulse Ox 10/28/21 10:31 36.4 C 72 20 141/94 H 99 - My Orders Last 24 Hours: My Active Orders 10/28/21 10:53 Max Facial Sinus w Cont [CT] Stat - Assessment/Plan Last 24 Hours: My Active Orders 10/28/21 10:53 Max Facial Sinus w Cont [CT] Stat Plan: Assessment / Plan: 1) Acute sinusitis - augmentin 875 po BID for 10 days. Diclofenac potassium 50 mg TID prn pain - 20 tabs
== END 2021-10-28 13:29 | disposition home or self-care (01) ==
LOC: CC.ED 10:10
DX: O99.351 Diseases of the nervous system complicating pregnancy, first trimester (principal); G43.B0 Ophthalmoplegic migraine, not intractable; O09.91 Supervision of high risk pregnancy, unspecified, first trimester; O99.511 Diseases of the respiratory system complicating pregnancy, first trimester; J01.90 Acute sinusitis, unspecified; O99.611 Diseases of the digestive system complicating pregnancy, first trimester; K21.9 Gastro-esophageal reflux disease without esophagitis; Z88.1 Allergy status to other antibiotic agents; Z79.899 Other long term (current) drug therapy
CPT/HCPCS: 36415; 70487; 80053; 85025; 86140; 96372; 99284; J1885; Q9967

== ENCOUNTER 2022-07-09 16:19 | Emergency (ER) | payer MEDICAID ==
[2022-07-09] MEDS ORDERED: Sodium Chloride 0.9% 10 ML Syringe FLUSH PRN (16:30)
== END 2022-07-09 17:09 | disposition home or self-care (01) ==
LOC: CC.ED 16:19
DX: O99.892 Other specified diseases and conditions complicating childbirth (principal); R10.30 Lower abdominal pain, unspecified; Z3A.23 23 weeks gestation of pregnancy; F17.210 Nicotine dependence, cigarettes, uncomplicated; Z88.1 Allergy status to other antibiotic agents; Z79.899 Other long term (current) drug therapy; Z90.49 Acquired absence of other specified parts of digestive tract
CPT/HCPCS: 99283; 99284

== ENCOUNTER 2023-05-25 10:30 | Emergency (ER) | payer MEDICAID ==
[2023-05-25] MEDS ORDERED: Ondansetron 4 MG/2 ML SDV IVPUSH STA (10:45)
[2023-05-25 10:56] LABS: BASOPHILS ABSOLUTE AUTO 0.03 10^3/uL (0.00-0.50); BASOPHILS PERCENT AUTO 0.3 % (0-1); EOSINOPHILS ABSOLUTE AUTO 0.12 10^3/uL (0.00-1.50); EOSINOPHILS PERCENT AUTO 1.1 % (0-6); HEMATOCRIT 43.7 % (37.0-47.0); HEMOGLOBIN 14.6 g/dL (12.0-16.0); IMMATURE GRAN ABSOLUTE AUTO 0.02 10^3/uL (0.00-0.49); IMMATURE GRAN PERCENT AUTO 0.2 % (0.0-4.9); LYMPHOCYTES ABSOLUTE AUTO 0.97 10^3/uL (0.60-5.00); LYMPHOCYTES PERCENT AUTO 9.2 % (24-44); MEAN CORPUSCULAR HEMOGLOBIN 27.7 pg (27.0-32.0); MEAN CORPUSCULAR HGB CONC 33.4 g/dL (32.0-36.0); MEAN CORPUSCULAR VOLUME 82.8 fL (83.0-97.0); MONOCYTES ABSOLUTE AUTO 0.43 10^3/uL (0.00-1.50); MONOCYTES PERCENT AUTO 4.1 % (0-10); NEUTROPHILS ABSOLUTE AUTO 8.98 x10^3/uL (1.80-8.00); NEUTROPHILS PERCENT AUTO 85.1 % (41-71); PLATELET COUNT,PLT 267 10^3/uL (150-400); RED BLOOD CELL COUNT 5.28 x10^6/uL (4.00-5.50); WHITE BLOOD CELL COUNT,WBC 10.6 10^3/uL (4.0-11.0)
[2023-05-25] MEDS ORDERED: Morphine 2 MG/ML SYRINGE IVPUSH ONE ×2 (11:01→12:26)
[2023-05-25 11:04] LABS: APPEARANCE,URINE CLEAR (CLEAR); BILIRUBIN,URINE NEGATIVE (NEGATIVE); COLOR,URINE DARK YELLOW (YELLOW); GLUCOSE,URINE NEGATIVE (NEGATIVE); KETONES,URINE NEGATIVE (NEGATIVE); LEUKOCYTE ESTERASE,URINE NEGATIVE (NEGATIVE); NITRITE,URINE NEGATIVE (NEGATIVE); OCCULT BLOOD,URINE NEGATIVE (NEGATIVE); PH,URINE 8.5 (4.5-8.0); PROTEIN,URINE 30 mg/dL (NEGATIVE); UROBILINOGEN,URINE 0.2 EU/dL (0.2-1.0)
[2023-05-25 11:10] LABS: BACTERIA,URINE OCCASIONAL /HPF (NOT SEEN); EPITHELIAL CELLS,URINE OCCASIONAL /HPF (NOT SEEN); MUCUS,URINE NOT SEEN /HPF (NOT SEEN); RBC,URINE NOT SEEN /HPF (0-5); WBC,URINE 0-5 /HPF (0-5)
[2023-05-25 11:14] LABS: ALANINE AMINOTRANSFERASE,ALT 19 U/L (12-78); ALBUMIN 3.5 g/dL (3.4-5.0); ALKALINE PHOSPHATASE 64 U/L (46-116); ASPARTATE AMNIOTRANSFERASE,AST 12 U/L (15-37); BILIRUBIN TOTAL 0.3 mg/dL (0.0-1.0); BLOOD UREA NITROGEN,BUN 9 mg/dL (7-18); C-REACTIVE PROTEIN 0.73 mg/dL (<=0.30); CALCIUM 9.2 mg/dL (8.4-10.1); CARBON DIOXIDE,CO2 22 mmol/L (21-32); CHLORIDE,CL 104 mEq/L (98-106); CREATININE 0.9 mg/dL (0.6-1.0); ESTIMATED GFR 85 mL/min (>=60); GLUCOSE RANDOM 120 mg/dL (75-99); LIPASE 28 U/L (16-77); POTASSIUM,K 4.1 mEq/L (3.5-5.0); PROTEIN TOTAL,TP 7.8 g/dL (6.4-8.2); SODIUM,NA 139 mEq/L (136-145)
[2023-05-25] MEDS ORDERED: Sodium Chloride 0.9% 1,000 ML IV ONE (11:20)
[2023-05-25] MEDS ORDERED: Iopamidol 755 Mg/ML 100 ML Bottle IVPUSH ONE (11:22)
[2023-05-25] MEDS ORDERED: Alum Hydrox/Mag Hydrox/Simeth 30 ML, Lidocaine 2% 15 ML PO ONE ×2 (11:52)
== END 2023-05-25 13:45 | disposition home or self-care (01) ==
LOC: CC.ED 10:30
DX: K29.50 Unspecified chronic gastritis without bleeding (principal); K52.9 Noninfective gastroenteritis and colitis, unspecified; K21.9 Gastro-esophageal reflux disease without esophagitis; Z79.899 Other long term (current) drug therapy; Z88.1 Allergy status to other antibiotic agents
CPT/HCPCS: 36415; 74177; 80053; 81001; 81025; 83690; 85025; 86140; 96361; 96374; 96375; 96376; 99284; 99284-25; A9270-GY; J2270; J2405; J7030; Q9967

== ENCOUNTER 2024-07-30 12:11 | Emergency (ER) | payer OTHER, MEDICAID | END 2024-07-30 13:45 | disposition home or self-care (01) | LOC: CC.ED 12:11 | DX: S46.911A Strain of unspecified muscle, fascia and tendon at shoulder and upper arm level, right arm, initial encounter (principal); K21.9 Gastro-esophageal reflux disease without esophagitis; Z88.1 Allergy status to other antibiotic agents; Z79.899 Other long term (current) drug therapy; Z90.49 Acquired absence of other specified parts of digestive tract; Z87.891 Personal history of nicotine dependence; V49.40XA Driver injured in collision with unspecified motor vehicles in traffic accident, initial encounter | CPT/HCPCS: 73030-RT; 73070-RT; 99283; 99284 ==